=== PATIENT | male | born 1955 | race Caucasian/White ===

== ENCOUNTER → 2023-03-22 | Outpatient (CLI) | payer MEDICARE ==
--- NOTE | 2023-03-22 11:15 | MR ---
EXAMINATION TYPE: MR Prostate wo/w con DATE OF EXAM: 03/22/2023 COMPARISON: None. INDICATION: Elevated PSA PSA: 5.55 ng/ml on January 10 2023 increased to 6.89 on February 12, 2023 Recent Biopsy and Date: None Pathology Report (If Applicable): n/a TECHNIQUE: Examination was performed using a 3T MRI without an endorectal coil. Multiparametric imaging was perf ormed with T2 mutliplanar sequences, axial diffusion weighted imaging and dynamic contrast enhanced i maging, utilizing 7 mL intravenous Gadavist gadolinium contrast. FINDINGS: PROSTATE VOLUME: 4.1 cm SI x 4.2 cm AP x 4.7 cm LR Vol= 42.4 cc PSA DENSITY: 0.16 ng/ml/cc Slightly enlarged prostate gland. Some artifact from adjacent gaseous distended rectum. No obvious ar ea of increased signal on diffusion-weighted images or significant signal on ADC mapping in the perip heral zone. Central transitional zone shows marginated without suspicious diminished T2 signal or inc reased signal on diffusion-weighted imaging. Seminal vesicles are symmetric and slightly bulky. Urina ry bladder shows no abnormal wall thickening or significant trabeculation. Small amount of free fluid in the pelvis axial image 29 is of uncertain etiology. There are indisting uishable small bowel loops without abnormal dilatation filling the pelvis. The visualized osseous str uctures are intact. IMPRESSION: Slightly enlarged prostate gland consistent with BPH. A focus of clinically significant cancer is not identified. Highest Assessment Category: 1 MRI Stage: T0 N0 M0 based on review of pelvic images. False negative rates for MRI range from 5-20% depending on risk profile. Assessment Categories: 1 ? Very low (clinically significant cancer is highly unlikely to be present) 2 ? Low (clinically significant cancer is unlikely to be present) 3 ? Intermediate (the presence of clinically significant cancer is equivocal) 4 ? High (clinically significant cancer is likely to be present) 5 ? Very high (clinically significant cancer is highly likely to be present)
== END | disposition home or self-care (01) ==
LOC: RADMRIMAIN 02-24 09:05
PROVIDERS: ATTEND Urology
DX: N40.0 Benign prostatic hyperplasia without lower urinary tract symptoms (principal); R97.20 Elevated prostate specific antigen [PSA]
CPT/HCPCS: 72197; A9585